=== PATIENT | female | born 1995 | race African-American/Black ===

== ENCOUNTER 2016-07-28 10:16 | Emergency (ER) | payer OTHER ==
[~2016-07-28] VITALS: Ht 167.6 cm; Wt 68.0 kg
[2016-07-28 10:54] VITALS: BP 116/65
== END 2016-07-28 11:08 | disposition home or self-care (01) ==
LOC: ER 10:18
DX: N39.0 Urinary tract infection, site not specified (principal)
CPT/HCPCS: 81025